=== PATIENT | female | born 1940 | race Caucasian/White ===

== ENCOUNTER 2019-04-09 10:35 | Emergency (ER) | payer MEDICARE, OTHER ==
[~2019-04-09] VITALS: Ht 163.8 cm; Wt 68.0 kg
[~2019-04-09 10:35] MED LIST: ALLEGRA180 MG PO; ALLOPURINOL100 MG PO; AMLODIPINE2.5 MG PO; ARTHRTS PAIN650 M1 PO; ASMANEX 120220 MCG IN; AUGMENTIN500TAB PO; AUGMENTIN875TAB OR; CLARITIN10 M1 PO; CLOPIDOGREL75 MG PO; DEXILANT60 MG OR; DIOVAN40 MG PO; DRISDOL50000 UNIT PO; DYMISTA1 SPR; ESTRING2 MG VA; LIDODERM5 % EX; LOPID600 MG PO; LOVASTATIN10 M1 PO; MEDDOSEPAK PO; METAN1 OR; NEURONTIN100 MG PO; PLAVIX75 MG PO; PRAVACHOL10 MG PO; PRILOSEC OTC20 MG PO; PROLIA60 MG/ML SC; SINGULAIR10 MG PO; SODIUM OR; TRAMADOL HCL50 MG PO; TRAMADOL HYDROC50 MG PO; TRICOR145 MG PO; TUMS ULTRA 101000 MG PO; ULORIC80 MG PO; VERAMYST27.5 MCG; VITAMIN B CO PO; WOMEN'S ONE PO
[2019-04-09] MEDS ORDERED: AMLODIPINE5 MG PO (11:01)
[2019-04-09] MEDS ORDERED: LOVASTATIN10 MG PO (11:03)
[2019-04-09] MEDS ORDERED: ELIQUIS2.5 MG PO (11:04)
[2019-04-09] MEDS ORDERED: NEURONTIN100 MG PO (11:05)
[2019-04-09] MEDS ORDERED: PROTONIX40 MG PO (11:05)
[2019-04-09] MEDS ORDERED: TRIPHROCAPS PO (11:08)
[2019-04-09] MEDS ORDERED: FOSRENOL1000 MG PO (11:09)
[2019-04-09] MEDS ORDERED: LORTAB 1010 MG PO (11:10)
[2019-04-09] MEDS ORDERED: RENAGEL 800MG800 MG PO (11:10)
[2019-04-09] MEDS ORDERED: ULTRAM50 M1 PO (11:47)
[2019-04-09 12:00] VITALS: BP 189/79
== END 2019-04-09 12:00 | disposition home or self-care (01) ==
LOC: ED 10:35
PROC: 2W39X1Z Immobilization of Left Upper Extremity using Splint (ICD-10-PCS; principal; 2019-04-09)
DX: S52.022A Displaced fracture of olecranon process without intraarticular extension of left ulna, initial encounter for closed fracture (principal); I12.0 Hypertensive chronic kidney disease with stage 5 chronic kidney disease or end stage renal disease; N18.6 End stage renal disease; W06.XXXA Fall from bed, initial encounter; Y92.003 Bedroom of unspecified non-institutional (private) residence as the place of occurrence of the external cause; Z99.81 Dependence on supplemental oxygen; Z99.2 Dependence on renal dialysis

== ENCOUNTER 2019-04-09 20:08 | Observation (INO) | payer MEDICARE, OTHER ==
[~2019-04-09] VITALS: Ht 160 cm; Wt 64.4 kg
[~2019-04-09 20:08] MED LIST changes: +AMLODIPINE5 MG PO; +ELIQUIS2.5 MG PO; +FOSRENOL1000 MG PO; +LORTAB 1010 MG PO; +LOVASTATIN10 MG PO; +PROTONIX40 MG PO; +RENAGEL 800MG800 MG PO; +TRIPHROCAPS PO; +ULTRAM50 M1 PO
--- NOTE | 2019-04-09 20:12 | NUR ---
PT WHEELED STRAIGHT BACK TO ROOM 12 FOR TRIAGED. TOOK PT OFF HOME PORTABLE 02 AND PLACED ON HOSPITAL 02@2L
--- NOTE | 2019-04-09 20:30 | NUR ---
PT IS ON 02@2 LPM NC SHE IS ON AT HOME. PT HAS DRSG ON LEFT FOOT WITH CAST SHOE FROM RECENT TOE AMPUTATION. RENAL DIALYSIS CATH IN RIGHT CHEST. ILEOSTOMY PRESENT
--- NOTE | 2019-04-09 20:30 | NUR ---
ALSO HAS AN OCL SPLINT TO LEFT ELBOW. CSM +
--- NOTE | 2019-04-09 20:37 | NUR ---
AT BEDSIDE TO DISCUSS PLAN OF CARE.
[2019-04-09 20:51] LABS: HEMATOCRIT 41.3 % (37.0-47.0); HEMOGLOBIN 13.2 g/dl (12.0-16.0); IMMATURE GRANULOCYTES 0.7 % (0.0-5.0); MEAN CELL VOLUME 97.9 fL CALC (80.0-100.0); MEAN CORPUSCULAR HGB 31.3 pG CALC (26.0-32.0); NEUT# 14.75 thou/uL (2.00-7.15); RED BLOOD COUNT 4.22 mill/uL (4.20-5.60); RED CELL DISTRI WIDTH 14.9 % (11.5-15.5)
--- NOTE | 2019-04-09 21:08 | NUR ---
LAB HERE FOR RE-COLLECT. REPORT TO SONJA
--- NOTE | 2019-04-09 21:21 | NUR ---
MED REC COMPLETED
--- NOTE | 2019-04-09 21:30 | NUR ---
TO FLOOR VIA STRETCHER WITH O2
[2019-04-09 21:34] LABS: ALBUMIN 3.9 g/dL (3.2-5.0); BILIRUBIN, TOTAL 0.9 mg/dL (0.0-1.4); TOTAL PROTEIN 6.8 g/dL (6.3-8.2)
[2019-04-09 21:35] VITALS: BP 167/70
--- NOTE | 2019-04-09 21:35 | NUR ---
RECEIVED REPORT FROM NURSE PURCELL, PATIENT TRANSPORTED VIA BED, HOOKED TO O2 AT 2LPM VIA NC, TOGETHER WITH FAMILY, PATIENT SETTLED IN BED, ORIENTED TO ROOM AND CALL LIGHT SYSTEM.
[2019-04-09 21:37] LABS: CREATININE 4.2 mg/dL (0.5-1.0); POTASSIUM 3.7 mmol/l (3.5-5.1)
--- NOTE | 2019-04-09 22:40 | NUR ---
PATIENT ALERT AND ORIENTED X 3 ABLE TO MAKE NEEDS KNOWN, WITH AN ONGOING IV OF NORMAL SALINE @100CC/HR INFUSING WELL ON RT WRIST G22, PATIENT ATTENDS DIALYSIS MWF @ 11;30 AM [facility], HAS TESIO CATHETER ON RT NECK COVERED WITH DRESSING, SPLINT ON LEFT ELBOW WRAP WITH MICHAEL BANDAGE, PATIENT IS A TOE AMPUTEE OF THE LEFT FOOT 3 WEEKS AGO WITH CAST SHOE. C/O PAIN OVER LEFT ELBOW FRACTURE, PRN LORTAB GIVEN WILL REEVALUATE.
[2019-04-09 23:56] VITALS: BP 164/61
--- NOTE | 2019-04-10 01:07 | NUR ---
PATIENT RESTING IN BED, STATING PAIN RELIEF FROM LORTAB, REMAINS ON O2 AT 2LPM VIA NC, CALL LIGHTA T REACH.
--- NOTE | 2019-04-10 04:00 | NUR ---
PATIENT C/O PAIN ON LEFT ARM, PRN LORTAB GIVEN WILL REEVALUATE.
[2019-04-10 04:33] VITALS: BP 133/57
--- NOTE | 2019-04-10 05:22 | NUR ---
PATIENT CURRENTLY RESTING IN BED PATIENT STATED PAIN RELIEF, CALL LIGHT AT REACH.
[2019-04-10 08:10] VITALS: BP 147/68
--- NOTE | 2019-04-10 08:10 | NUR ---
LABS DRAWN THIS AM. TOLERATED WELL. AT 0805 IN TO VISIT WITH PT FOR DISCHARGE INSTRUCTIONS,
--- NOTE | 2019-04-10 08:10 | NUR ---
ASSESSMENT IS COMPLETED: IV SITE IS FREE FROM REDNESS OR EDEMA. HR IS REG,PULSES ARE STRONG X4, ABD IS SOFT WITH ACTIVE BS. BREATH SOUNDS ARE CLEAR, BILATERALLY. NO C/O SOB, O2 @ 2LITERS WITH NC. DRESSING ON LEFT ARM IS CDI. CONTINUE TO OSBERVE AND MONITOR.
[2019-04-10 08:36] LABS: ALBUMIN 3.3 g/dL (3.2-5.0); POTASSIUM 4.1 mmol/l (3.5-5.1); TOTAL PROTEIN 5.8 g/dL (6.3-8.2)
[2019-04-10 08:51] VITALS: BP 147/68
--- NOTE | 2019-04-10 09:05 | NUR ---
Discharge instructions given. Patient verbalizes understanding of same. Discharged in stable condition via Wheelchair to Home with family. All belongings sent with pt.
--- NOTE | 2019-04-10 09:07 | NUR ---
DISCHARGE INSTRUCTIONS GIVEN , IV SITE REMOVED AND INTACT. CATHETER INTACT. FAMILY IN THE ROOM. CONTINUE TO OBSERVE AND MONITOR.
== END 2019-04-10 09:04 | disposition home health service (06) ==
LOC: ED 20:08 → ED-I 20:31 → ED 20:31 → MS2 21:07
PROVIDERS: Emergency Medicine; Internal Medicine Nephrology; ADMIT Internal Medicine; ATTEND Internal Medicine
DX: G89.11 Acute pain due to trauma (principal); S52.022A Displaced fracture of olecranon process without intraarticular extension of left ulna, initial encounter for closed fracture; I12.0 Hypertensive chronic kidney disease with stage 5 chronic kidney disease or end stage renal disease; N18.6 End stage renal disease; I73.9 Peripheral vascular disease, unspecified; E87.1 Hypo-osmolality and hyponatremia; J84.10 Pulmonary fibrosis, unspecified; K50.90 Crohn's disease, unspecified, without complications; W06.XXXA Fall from bed, initial encounter; Y92.003 Bedroom of unspecified non-institutional (private) residence as the place of occurrence of the external cause; Z90.49 Acquired absence of other specified parts of digestive tract; Z99.2 Dependence on renal dialysis; Z87.891 Personal history of nicotine dependence; Z93.2 Ileostomy status; Z89.432 Acquired absence of left foot; Z99.81 Dependence on supplemental oxygen

== ENCOUNTER 2019-04-18 14:25 | Emergency (ER) | payer MEDICARE, OTHER ==
[~2019-04-18] VITALS: Ht 160 cm; Wt 70.0 kg
[2019-04-18] MEDS ORDERED: GABAPENTIN100 MG PO (14:48)
[2019-04-18] MEDS ORDERED: ELIQUIS2.5 MG PO (14:48)
[2019-04-18 15:23] LABS: HEMATOCRIT 40.9 % (37.0-47.0); HEMOGLOBIN 12.8 g/dl (12.0-16.0); IMMATURE GRANULOCYTES 0.9 % (0.0-5.0); MEAN CELL VOLUME 99.8 fL CALC (80.0-100.0); MEAN CORPUSCULAR HGB 31.2 pG CALC (26.0-32.0); MEAN CORPUSCULAR HGB CONC 31.3 g/L CALC (32.0-36.0); NEUT# 13.91 thou/uL (2.00-7.15); RED BLOOD COUNT 4.1 mill/uL (4.20-5.60); RED CELL DISTRI WIDTH 14.6 % (11.5-15.5)
[2019-04-18 15:33] LABS: BILIRUBIN, TOTAL 1.1 mg/dL (0.0-1.4); POTASSIUM 3.8 mmol/l (3.5-5.1)
[2019-04-18 15:35] LABS: ALBUMIN 4.1 g/dL (3.2-5.0); CREATININE 3.8 mg/dL (0.5-1.0); TOTAL PROTEIN 7.1 g/dL (6.3-8.2)
[2019-04-18 16:37] LABS: URINE BILIRUBIN - DIPSTICK NEGATIVE (NEGATIVE); URINE BLOOD DIPSTICK MODERATE (NEGATIVE); URINE COLOR YELLOW; URINE GLUCOSE - DIPSTICK 100 mg/dL (NEGATIVE); URINE KETONE NEGATIVE (NEGATIVE); URINE NITRITE - DIPSTICK NEGATIVE (Negative); URINE PROTEIN - DIPSTICK 100 mg/dL (NEG-TRACE); URINE UROBILINOGEN - DIPSTICK 0.2 E.U./dL (0.2)
[2019-04-18] MEDS ORDERED: KEFLEX500 MG PO (16:39)
[2019-04-18 16:40] LABS: URINE LEUK ESTERASE MODERATE (NEGATIVE)
[2019-04-18 16:46] LABS: URINE WBC TNTC WBC/hpf (0-5)
[2019-04-18] MEDS ORDERED: MACROBID100 MG PO (17:01)
[2019-04-18] MEDS ORDERED: DIFLUCAN150 MG PO (17:01)
[2019-04-18 17:22] VITALS: BP 140/61
== END 2019-04-18 17:30 | disposition home or self-care (01) ==
LOC: ED 14:25
PROVIDERS: Emergency Medicine
DX: S22.31XA Fracture of one rib, right side, initial encounter for closed fracture (principal); N39.0 Urinary tract infection, site not specified; B37.3 Candidiasis of vulva and vagina; E11.621 Type 2 diabetes mellitus with foot ulcer; L97.529 Non-pressure chronic ulcer of other part of left foot with unspecified severity; E11.52 Type 2 diabetes mellitus with diabetic peripheral angiopathy with gangrene; I96 Gangrene, not elsewhere classified; I10 Essential (primary) hypertension; W19.XXXA Unspecified fall, initial encounter; Z89.432 Acquired absence of left foot

== ENCOUNTER 2019-05-20 18:07 | Emergency (ER) | payer MEDICARE, OTHER ==
[~2019-05-20] VITALS: Ht 160 cm; Wt 86.4 kg
[~2019-05-20 18:07] MED LIST changes: +DIFLUCAN150 MG PO; +GABAPENTIN100 MG PO; +KEFLEX500 MG PO; +MACROBID100 MG PO
[2019-05-20 18:23] LABS: HEMATOCRIT 39.2 % (37.0-47.0); HEMOGLOBIN 12.1 g/dl (12.0-16.0); IMMATURE GRANULOCYTES 0.9 % (0.0-5.0); MEAN CELL VOLUME 100.8 fL CALC (80.0-100.0); MEAN CORPUSCULAR HGB 31.1 pG CALC (26.0-32.0); MEAN CORPUSCULAR HGB CONC 30.9 g/L CALC (32.0-36.0); NEUT# 13.52 thou/uL (2.00-7.15); RED BLOOD COUNT 3.89 mill/uL (4.20-5.60); RED CELL DISTRI WIDTH 14.8 % (11.5-15.5)
[2019-05-20 18:38] LABS: ALBUMIN 3.5 g/dL (3.2-5.0); ALKALINE PHOSPHATASE 108 u/l (38-126); BUN 43 mg/dL (8-23); CARBON DIOXIDE 24 mmol/l (22-30); CHLORIDE 90 mmol/l (95-108); LIPASE 17 u/l (23-300); SGOT/AST 19 u/l (9-36); TOTAL PROTEIN 6.8 g/dL (6.3-8.2)
[2019-05-20 18:39] LABS: PROTHROMBIN TIME 10.8 SECONDS (9.0-12.5)
[2019-05-20 18:44] LABS: ANION GAP 19 (6-22 (CALC)); BILIRUBIN, TOTAL 0.6 mg/dL (0.0-1.4); BUN/CREATININE RATIO 7 (12-20 (CALC)); CREATININE 6.5 mg/dL (0.5-1.0); GFR 6 ML/MIN (>=60 (CALC)); GFR FOR AFR.AMER. 8 ML/MIN (>=60 (CALC)); POTASSIUM 5.7 mmol/l (3.5-5.1); SODIUM 127 mmol/l (137-146)
[2019-05-20 21:10] VITALS: BP 134/56
== END 2019-05-20 21:10 | disposition short-term general hospital (02) ==
LOC: ED 18:07
PROVIDERS: Family Medicine
DX: A41.9 Sepsis, unspecified organism (principal); I63.81 Other cerebral infarction due to occlusion or stenosis of small artery; R29.720 NIHSS score 20; I12.0 Hypertensive chronic kidney disease with stage 5 chronic kidney disease or end stage renal disease; N18.6 End stage renal disease; Z93.2 Ileostomy status
CPT/HCPCS: J0131